=== PATIENT | female | born 1970 | race Caucasian/White ===

== ENCOUNTER 2016-09-26 11:17 | Emergency (ER) | payer MEDICAID ==
[2016-09-26] MEDS ORDERED: NS 1,000 ML IV ONE ×2 (11:44→12:47)
--- NOTE | 2016-09-26 12:51 | EDPHY ---
H & P Stated Complaint: vaginal bleeding, lightheaded, pale and weak Time Seen by Provider: 09/26/16 12:41 HPI/ROS: CHIEF COMPLAINT: VAGINAL BLEEDING, LIGHTHEADED HISTORY OF PRESENT ILLNESS: 46 year Old female who comes to the emergency department complaining of continued vaginal bleeding and lightheadedness. She states that she had heavy bleeding in March and was diagnosed with fibroids and urgent care provider recommended hysterectomy. She was seen by Dr. Salguero from OBGYN who recommended attempting to control her bleeding with hormones. Patient states that this has not worked well and that she has been bleeding for about 3 weeks out of 4 for the last several months. Over the last 48 hours it became very heavy. She feels lightheaded when she stands up and presyncopal. She denies chest pain or shortness of breath. she is 7 years ago. She spoke with Dr. Salguero 1 week ago and they agree to have the patient find any physician. She has not yet found any physician. REVIEW OF SYSTEMS: Constitutional: denies: chills, fever, recent illness, recent injury EENTM: denies: blurred vision, double vision, nose congestion Respiratory: denies: cough, shortness of breath Cardiac: denies: chest pain, irregular heart rate, lightheadedness, palpitations Gastrointestinal/Abdominal: denies: abdominal pain, diarrhea, nausea, vomiting, blood streaked stools Genitourinary: See HPI Musculoskeletal: denies: joint pain, muscle pain Skin: denies: lesions, rash, jaundice, bruising Neurological: denies: headache, numbness, paresthesia, tingling, dizziness, weakness Hematologic/Lymphatic: denies: blood clots, easy bleeding, easy bruising Immunologic/allergic: denies: HIV/AIDS, transplant EXAM: GENERAL: Slightly pale, tachycardic HEAD: Atraumatic, normocephalic. EYES: Pupils equal round and reactive to light, extraocular movements intact, sclera anicteric, conjunctiva are normal. ENT: TMs normal, nares patent, oropharynx clear without exudates. Moist mucous membranes. NECK: Normal range of motion, supple without lymphadenopathy or JVD. LUNGS: Breath sounds clear to auscultation bilaterally and equal. No wheezes rales or rhonchi. HEART: Regular rate and rhythm without murmurs, rubs or gallops. ABDOMEN: Soft, nontender, normoactive bowel sounds. No guarding, no rebound. No masses appreciated. : Mild vaginal bleeding, No visible trauma. Small amount of clot the cervix. BACK: No CVA tenderness, no spinal tenderness, step-offs or deformities EXTREMITIES: Normal range of motion, no pitting or edema. No clubbing or cyanosis. NEUROLOGICAL: Cranial nerves II through XII grossly intact. Normal speech, normal gait. 5/5 strength, normal movement in all extremities, normal sensation PSYCH: Normal mood, normal affect. SKIN: Warm, dry, normal turgor, no visible rashes or lesions. Source: Patient Exam Limitations: No limitations - Personal History LMP (Females 10-55): Now Current Tetanus/Diphtheria Vaccine: Unsure Current Tetanus Diphtheria and Acellular Pertussis (TDAP): Unsure - Medical/Surgical History Hx Asthma: No Hx Chronic Respiratory Disease: No Hx Diabetes: No Hx Cardiac Disease: No Hx Renal Disease: No Hx Cirrhosis: No Hx Alcoholism: No Hx HIV/AIDS: No Hx Splenectomy or Spleen Trauma: No Other PMH: Fibroids - Family History Significant Family History: No pertinent family hx - Social History Smoking Status: Never smoked Alcohol Use: Sober Drug Use: None Constitutional: Initial Vital Signs Temperature (C) 36.8 C 09/26/16 11:22 Heart Rate 138 H 09/26/16 11:22 Respiratory Rate 22 H 09/26/16 11:22 Blood Pressure 122/8 H 09/26/16 11:22 O2 Sat (%) 100 09/26/16 11:22 O2 Delivery Mode Room Air Allergies/Adverse Reactions: No Known Allergies Allergy (Unverified 04/10/16 13:23) Home Medications: Medication Instructions Recorded Acyclovir [Zovirax 200 mg (*)] 200 mg PO TID PRN 09/26/16 Iron/FA/B12/C/Docusate Sodium 1 each PO DAILY 09/26/16 [Ferraplus 90 Tablet] Norethindrone AC-Eth Estradiol 1 each PO DAILY 09/26/16 [] Medical Decision Making ED Course/Re-evaluation: I spoke 1st with Dr. Vickie Castaneda, then with the nurse practitioner for Dr. Salguero and then with Dr. Rajni Schultz. Dr. Schultz recommends transfusion here and then if the patient stabilizes discharged to follow up in the clinic on Wednesday. Continue the control pills and discuss options at that point. She will likely eventually require a hysterectomy but it is not ideal at this time. If she is tachycardic or orthostatic after the transfusion then to admit to the hospital service. 4:15 p.m. the patient is feeling much better. She is what 1 unit. She is able to stand up without becoming lightheaded. We will infuse the 2nd ensure follow up with Dr. Schultz as previously discussed on Wednesday. 6:20 p.m. the patient is feeling completely better. She is not orthostatic. She will follow up on Wednesday with OBGYN. She declines further work up or testing. 6:40 p.m. the patient has a small faint spot of erythema to her forehead. I suggested we give her Benadryl and observed. She refuses observation because her friend is here to pick her up and she has a tag marker. She agreed to return immediately for symptoms worsen. Differential Diagnosis: Partial list of the Differential diagnosis considered include but were not limited to; anemia, fibroids, dysfunctional uterine bleeding and although unlikely based on the history and physical exam, I also considered infection, hemorrhage, . I discussed these differential diagnoses and the plan with the patient as well as the usual and expected course. The patient understands that the diagnosis is provisional and that in medicine we are not always correct and that further workup is often warranted. Usual and customary warnings were given. All of the patient's questions were answered. The patient was instructed to return to the emergency department should the symptoms at all worsen or return, otherwise to followup with the physician as we discussed. - Data Points Laboratory Results: Laboratory Results 09/26/16 11:35 09/26/16 11:35 09/26/16 09/26/16 11:35 11:32 WBC 11.26 H 10^3/uL (3.80-9.50) RBC 3.12 L 10^6/uL (4.18-5.33) Hgb 8.1 L g/dL (12.6-16.3) POC Hgb 9.2 L gm/dL (12.3-15.9) Hct 25.7 L % (38.0-47.0) POC Hct 27 L % (35.5-47.5) MCV 82.4 fL (81.5-99.8) MCH 26.0 L pg (27.9-34.1) MCHC 31.5 L g/dL (32.4-36.7) RDW 15.3 H % (11.5-15.2) Plt Count 424 H 10^3/uL (150-400) MPV 10.0 fL (8.7-11.7) Neut % (Auto) 75.6 H % (39.3-74.2) Lymph % (Auto) 14.0 L % (15.0-45.0) [place] % (Auto) 8.7 % (4.5-13.0) Eos % (Auto) 0.4 L % (0.6-7.6) Baso % (Auto) 0.8 % (0.3-1.7) Nucleat RBC Rel Count 0.0 % (0.0-0.2) Absolute Neuts (auto) 8.50 H 10^3/uL (1.70-6.50) Absolute Lymphs (auto) 1.58 10^3/uL (1.00-3.00) Absolute Monos (auto) 0.98 H 10^3/uL (0.30-0.80) Absolute Eos (auto) 0.05 10^3/uL (0.03-0.40) Absolute Basos (auto) 0.09 10^3/uL (0.02-0.10) Absolute Nucleated RBC 0.00 10^3/uL (0-0.01) Immature Gran % 0.5 % (0.0-1.1) Immature Gran # 0.06 10^3/uL (0.00-0.10) PT 13.6 SEC (12.0-15.0) INR 1.05 (0.83-1.16) APTT 21.7 L SEC (23.0-38.0) POC Sodium 136 mEq/L (134-144) Sodium 134 mEq/L (134-144) POC Potassium 3.3 mEq/L (3.3-5.0) Potassium 3.8 mEq/L (3.5-5.2) POC Chloride 100 mEq/L (96-108) Chloride 101 mEq/L (97-110) Carbon Dioxide 22 mEq/l (22-31) Anion Gap 11 mEq/L (8-16) POC BUN 10 mg/dL (7-23) BUN 11 mg/dL (7-23) Creatinine 0.7 mg/dL (0.6-1.0) POC Creatinine 0.7 mg/dL (0.6-1.2) Estimated GFR > 60 Glucose 139 H mg/dL (70-100) POC Glucose 140 H mg/dL (70-100) Calcium 9.1 mg/dL (8.5-10.4) Beta HCG, Qual NEGATIVE Patient ABO/Rh O POSITIVE Antibody Screen NEGATIVE Crossmatch IS Only See Detail Medications Given: Discontinued Medications Sodium Chloride (Ns) 1,000 mls @ 0 mls/hr IV ONCE ONE PRN Reason: Wide Open Stop: 09/26/16 11:45 Last Admin: 09/26/16 11:50 Dose: 1,000 mls Sodium Chloride (Ns) 1,000 mls @ 0 mls/hr IV EDNOW ONE PRN Reason: Wide Open Stop: 09/26/16 12:48 Last Admin: 09/26/16 12:50 Dose: 1,000 mls Point of Care Test Results: 09/26/16 11:32 POC Sodium 136 POC Potassium 3.3 POC Chloride 100 POC BUN 10 POC Creatinine 0.7 POC Glucose 140 H Departure - Departure Disposition: Home, Routine, Self-Care Clinical Impression: Encounter for blood transfusion Fibroids Qualifiers: Uterine leiomyoma location: submucous Qualifier Code: (D25.0) Submucous leiomyoma of uterus Condition: Fair Instructions: Uterine Fibroids (ED), Anemia (ED) Additional Instructions: We spoke with Dr. Schultz who will follow up with you on Wednesday. She is in the same office as Dr. Salguero. A few prefer another office altogether you may try and get an appointment with Dr. Rosales. Referrals: NONE *PRIMARY CARE P,. [Primary Care Provider] - As per Instructions Rajni Schultz DO [Doctor of Osteopathy] - As per Instructions Loretta Martinez MD [Medical Doctor] - As per Instructions Stand Alone Forms: Work Excuse
[2016-09-26 12:57] LABS: % IMMATURE GRANULYOCYTES 0.5 % (0.0-1.1); ABSOLUTE IMMATURE GRANULOCYTES 0.06 10^3/uL (0.00-0.10); ADD DIFF? NO; ADD MORPH? NO; ADD SCAN? NO; ATYPICAL LYMPHOCYTE FLAG 0 (0-99); FRAGMENT RBC FLAG 10 (0-99); HEMATOCRIT 25.7 % (38.0-47.0); HEMOGLOBIN 8.1 g/dL (12.6-16.3); LEFT SHIFT FLG 0 (0-99); LIPEMIA HEMOLYSIS FLAG 80 (0-99); MEAN CELL HEMOGLOBIN CONCENTR. 31.5 g/dL (32.4-36.7); MEAN CELL VOLUME 82.4 fL (81.5-99.8); PLATELET CLUMPS FLAG 0 (0-99); PLATELET COUNT 424 10^3/uL (150-400); RED BLOOD CELL COUNT 3.12 10^6/uL (4.18-5.33); RED CELL DISTRIBUTION WIDTH 15.3 % (11.5-15.2)
[2016-09-26 13:09] LABS: ANION GAP 11 mEq/L (8-16); CALCIUM 9.1 mg/dL (8.5-10.4); CARBON DIOXIDE 22 mEq/l (22-31); CHLORIDE 101 mEq/L (97-110); CREATININE 0.7 mg/dL (0.6-1.0); GLOMERULAR FILTRATION RATE > 60; GLUCOSE 139 mg/dL (70-100); POTASSIUM 3.8 mEq/L (3.5-5.2); SODIUM 134 mEq/L (134-144)
[2016-09-26 13:31] LABS: INR 1.05 (0.83-1.16); PROTIME(PATIENT) 13.6 SEC (12.0-15.0)
[2016-09-26 13:32] LABS: APTT 21.7 SEC (23.0-38.0)
[2016-09-26 14:37] VITALS: RESP 16
--- NOTE | 2016-09-26 16:28 | US ---
Pelvic Ultrasound Indication: 46-year-old woman with heavy bleeding for past six months. Technique: Transabdominal and transvaginal imaging. Comparison: Pelvic sonogram dated April 10, 2016. Findings: Transabdominal Imaging: The anteverted uterus is normal size measuring 10.5 cm in length x 6.8 x 5.5 cm. Three intramural and exophytic uterine leiomyomas are better characterized on transvaginal imagi ng. No adnexal mass or free fluid. Transvaginal Imaging: The largest intramural uterine leiomyoma in the lower uterine segment, bulging into and deforming the endometrial cavity, has minimally increased in volume since six months prior. The leiomyoma, labeled #1, measures 3.5 x 3.5 x 3.1 cm with a total volume of 19.7 mL (previously me asured 3.1 x 2.6 x 2.4 cm). A second leiomyoma toward the fundus in the posterior body, bulging and d eforming the endometrial lining anteriorly (labeled #2) measures 2.1 x 2.3 x 5.0 cm with a total volu me of 5.1 mL (previously 1.6 x 1.6 x 1.1 cm). A third exophytic leiomyoma emanating off the posterior left body has no effect upon the endometrial lining and measures 2.5 x 2.0 x 1.7 cm with a total vol ume of 4.3 mL (previously 2.2 x 1.8 x 1.8 cm). The deformed endometrial lining is obscured in the low er uterine segment and body. The endometrial lining at the fundus is normal thickness (7 mm). The ovaries are normal size with small peripheral follicles and normal blood flow on color Doppler im aging. No ovarian cysts or adnexal mass. The right ovary measures 2.3 x 2.0 x 1.1 cm. The left ovary measures 3.0 x 2.1 x 1.3 cm. Trace free fluid resides adjacent the right ovary. Impression: 1. Two intramural leiomyomas in the lower uterine segment and body have minimally increased in volume since March 2016 and have an intracavitary component deforming the endometrial lining. Leiomyomas a re likely the source for the abnormal uterine bleeding. 2. Endometrial lining within normal limits (7 mm). 3. Normal ovaries. Comment: Results were called to Dr. Cortez at 3 p.m. September 26, 2016.
[2016-09-26 18:30] VITALS: BP 149/87; PULSE 89; TEMP 97.5; O2SAT 97
== END 2016-09-26 18:54 | disposition home or self-care (01) ==
DX: D25.0 Submucous leiomyoma of uterus (principal); Z51.89 Encounter for other specified aftercare
CPT/HCPCS: 76856; 96360; 96361; 99285; P9016; 82947-QW; J1200

== ENCOUNTER 2016-10-20 07:56 | Inpatient (IN) | payer MEDICAID ==
[~2016-10-20 07:56] MED LIST: ceFAZolin 2 GM/DEXTROSE 100 ML IV ONE
[2016-10-20] MEDS ORDERED: LIDOCAINE 2% 5 ML SDV ONE (09:28)
[2016-10-20] MEDS ORDERED: ROCURONIUM 50 MG/5 ML VIAL ONE (09:28)
[2016-10-20] MEDS ORDERED: fentaNYL 100 MCG/2 ML INJ ONE ×4 (09:31→13:53)
[2016-10-20] MEDS ORDERED: PROPOFOL 200 MG/20 ML VIAL ONE (09:31)
[2016-10-20] MEDS ORDERED: LIDOCAINE 1% 30 ML SDV ONE (09:34)
[2016-10-20] MEDS ORDERED: BUPIVACAINE 0.25% 30 ML SDV ONE (09:35)
[2016-10-20] MEDS ORDERED: VASOPRESSIN 20 UNIT/ML VIAL ONE (09:35)
[2016-10-20] MEDS ORDERED: METHYLENE BLUE 0.5% 50 MG/10 ML AMP ONE (09:37)
[2016-10-20] MEDS ORDERED: SCOPOLAMINE HYDROBROMIDE 1.5 MG PATCH TD ONE (09:47)
[2016-10-20] MEDS ORDERED: MIDAZOLAM 2 MG/2 ML VIAL ONE (09:47)
[2016-10-20] MEDS ORDERED: DEXAMETHASONE 4 MG/ML VIAL ONE (10:18)
[2016-10-20] MEDS ORDERED: PHENYLEPHRINE HCL 100 MCG/ML SYR ONE (10:21)
[2016-10-20] MEDS ORDERED: ONDANSETRON 4 MG/2 ML VIAL ONE (12:18)
[2016-10-20] MEDS ORDERED: ceFAZolin 1 GM VIAL ONE (12:52)
[2016-10-20] MEDS ORDERED: SUGAMMADEX SODIUM 200 MG/2 ML VIAL IVP ONE (12:58)
[2016-10-20] MEDS ORDERED: SURGIFLO MATRIX KIT WITH THROMBIN TP ONE (13:05)
[2016-10-20] MEDS ORDERED: SKIN ADHESIVE (DERMABOND) 1 EACH TP ONE (13:18)
[2016-10-20] MEDS ORDERED: KETOROLAC 30 MG/1 ML SDV ONE (13:20)
[2016-10-20] MEDS ORDERED: LR 1,000 ML IV SCH (14:00)
[2016-10-20] MEDS ORDERED: HYDROCODONE/APAP 5/325 TAB PO PRN (14:00)
[2016-10-20] MEDS ORDERED: GLYCERIN ADULT 1 EACH SUPP PR ONE (14:30)
[2016-10-20 14:50] LABS: HEMATOCRIT 35.8 % (38.0-47.0); HEMOGLOBIN 11.1 g/dL (12.6-16.3); MEAN CELL VOLUME 90.2 fL (81.5-99.8); RED BLOOD CELL COUNT 3.97 10^6/uL (4.18-5.33); RED CELL DISTRIBUTION WIDTH 15.1 % (11.5-15.2)
[2016-10-20] MEDS ORDERED: HYDROmorphONE/DILAUDID 1 MG/ML SYR IVP PRN (16:22)
--- NOTE | 2016-10-20 16:59 | GOP ---
[f rep st] OPERATIVE REPORT DATE OF OPERATION: 10/20/2016 SURGEON: Belinda Carroll MD CAMPAIGN ASSOCIATE: Tina Ellison M.D. ANESTHESIA: General with ET tube. ANESTHESIOLOGIST: Travis Chacon M.D. PREOPERATIVE DIAGNOSIS: 1. Submucosal fibroids. 2. Abnormal uterine bleeding. 3. Anemia. POSTOPERATIVE DIAGNOSIS: 1. Submucosal fibroids. 2. Abnormal uterine bleeding. 3. Anemia. PROCEDURE PERFORMED: 1. Laparoscopic assisted vaginal hysterectomy. 2. Bilateral salpingectomy. 3. Cystoscopy. FINDINGS: Enlarged mobile uterus. Good descensus noted on exam. ESTIMATED BLOOD LOSS: 500 mL. INDICATIONS: The patient is a 46-year-old G1, P1 with a fibroid uterus and abnormal uterine bleeding over the course of 9 months, that has not responded to medical management and required a transfusion of 2 units pRBCs. She desires a hysterectomy for definitive surgery. DESCRIPTION OF PROCEDURE: The patient was taken to the operating room. Her identity and the procedure were confirmed. She was placed under general anesthesia with an ET tube. She was prepped and draped in a normal sterile condition in dorsal lithotomy with Daquan stirrups. A martin catheter was placed. A final time out was performed. The PATEL II uterine manipulator was placed with a 6 mm tip and 3.5 cm cup. Attention was turned to the abdomen. 0.25% marcaine was injected at the base of the umbilicus and a 10 mm incision was made. The skin was lifted and the veress needle was placed. The opening pressure was 2 mm/ Hg. The abdomen was insufflated to 15 mm Hg. 2 lateral 5 mm ports were placed under direct visualization after injection of marcaine. Bilateral fallopian tubes were removed using the Ligasure. Attention was turned to the right uteroovarian ligament which was sealed and cut using the Ligasure. The round ligament was similarly transected. An opening was made between the anterior and posterior leaves of the broad liagment.the bladder flap was developed on the right. The uterine artery was skeletonized and sealed. Attention was turned to the left side where the same procedure was performed. The bladder flap was further developed using an endo kitner until it is was 2 cm below the cuff of the PATEL. The left uterine artery was sealed and cut. The right uterine artery was then cut. Attention was then turned to the cuff which was incised anteriorly using the laparoscopic Bovie. Despite uterine manipulation and changing to a 30 degree laparoscope we were unable to get the necessary visualization to incise the cuff posteriorly, so the decision was made to finish the colpotomy from below. The short weight speculum was placed and the cervix was grasped with Joaquín's tenacula. We entered sharply posteriorly into the peritoneum and then placed the long weight speculum. The remainder of the attachment of the uterus to the bilateral uterosacrals was taken down using the curvey bob clamp and sharp transection, requiring 2 bites on both sides. Hemostasis was noted at this time. There was a small (~ 1.5 cm) vaginal laceration noted at the cuff in the midline posteriorly and this was repaired with a running locked stitch of 0 vicryl. The cuff was then closed in a running locked fashion with 0 vicryl. Hemostasis was noted. A cystoscopy was performed and the bladder was noted to be normal in appearance with strong urinary jets bilaterally. We then changed gowns and gloves and returned laparoscopically. Extensive irrigation was performed. There was some mild oozing at the cuff which resolved with cautery and surgiflow application. The remainder of the surgical site was hemostatic. All instruments and gas was removed from the abdomen. The incisions were closed with 4-0 monocryl. A pressure dressing with tegadarm was placed on the umbilical incision, and dermabond was used on the 2 lateral incision. The patient was awakened and brought to the recovery room in good condition. FLUIDS REPLACED: 1900 mL. URINE OUTPUT: 50 mL. COMPLICATIONS: None /[id number]/MODL MTDD
[2016-10-20] MEDS: OXYCODONE/APAP 5/325 TAB PO PRN ×2 (17:28→17:34)
[2016-10-20] MEDS: ONDANSETRON 4 MG/2 ML VIAL IVP PRN ×2 (18:04→22:03)
[2016-10-20] MEDS ORDERED: NALOXONE HCL 0.4 MG/ML INJ IVP PRN (18:31)
[2016-10-20] MEDS ORDERED: morphINE PCA 30 MG/30 ML PCA IV PRN (18:31)
--- NOTE | 2016-10-20 19:14 | SOAPPROG ---
SOAP Progress Note Assessment/Plan: Assessment: POD#1 s/p LAVH, b/l salpingectomy, cysto Pt with ongoing pain that is more than would be expected. VSS, no tachycardia, afebrile, normal BP. No surgical abdomen. No evidence of intraabdominal bleeding. UOP on lower side (50 ml in PACU, 100 ml at time of martin removal about 1600), but overall adequate Plan: Pt really feels that morphine helped most, will do a trial of morphine EVENT HOST overnight as she remains very uncomfortable. Will encourage her to minimize narcotics as much as possible. Ativan 1 mg x1 prn as she is feeling very anxious, will see if necessary after EVENT HOST is initiated Continue bowel care Monitor ins and outs closely Get repeat CBC now. Expect will be lower than in PACU which was drawn very shortly after surgery, but will eval for any evidence of ongoing blood loss. If pain persists despite above measures consider imaging such as CT or US 10/20/16 19:16 Subjective: Pt with ongoing pain since surgery. Initially was complaining of severe constipation immediately after surgery, got a suppository in the PACU and then an enema once she arrived on the floor. Also wanted martin out so this was removed. After the enema she felt better in terms of needing to have a bowel movement (small amount of hard stool was removed). However now she is still complaining of abdominal pain, not helped by 0.4 mg dilaudid or 2 percocet. She states the only thing that helped was the morphine in the PACU. Denies nausea/ vomiting. Minimal vaginal bleeding but she is worried about ripping stitches since she was straining on the commode. Painful when she takes a deep breath. Is feeling anxious. Objective: Vital Signs Temp Pulse Resp BP Pulse Ox 36.8 C 70 16 144/85 H 100 10/20/16 17:55 10/20/16 17:55 10/20/16 17:55 10/20/16 17:55 10/20/16 17:55 Laboratory Results 10/20/16 14:30 10/19/16 10/20/16 10/21/16 05:59 05:59 05:59 Intake Total 2700 Output Total 650 Balance 2049 Gen: alert, awake, sitting straight up, no acute distress, AOx4, talking in complete sentences CV: abd mildly distended, soft, slightly more tender than would be expected but no rebound/guarding. Ext: no edema Entrepreneur: minimal blood on pad. Cuff palpated, intact ICD10 Worksheet Patient Problems: Problems Problem Status Onset H/O: hysterectomy Acute - ICD10 Problem Qualifiers (1) H/O: hysterectomy
[2016-10-20] MEDS ORDERED: LORazepam 1 MG TAB PO PRN (19:23)
[2016-10-20] MEDS: KETOROLAC 30 MG/1 ML SDV IVP PRN (19:26)
[2016-10-20 19:47] LABS: HEMATOCRIT 28.8 % (38.0-47.0); HEMOGLOBIN 9.1 g/dL (12.6-16.3); MEAN CELL HEMOGLOBIN 27.9 pg (27.9-34.1); MEAN CELL HEMOGLOBIN CONCENTR. 31.6 g/dL (32.4-36.7); MEAN CELL VOLUME 88.3 fL (81.5-99.8); RED BLOOD CELL COUNT 3.26 10^6/uL (4.18-5.33)
[2016-10-20] MEDS: SIMETHICONE 80 MG TAB CHEW PO SCH (23:44)
[2016-10-20] MEDS: DOCUSATE SODIUM 100 MG CAP PO SCH (23:44)
[2016-10-21] MEDS: KETOROLAC 30 MG/1 ML SDV IVP PRN ×2 (03:01→09:12)
[2016-10-21 08:20] LABS: HEMATOCRIT 23.2 % (38.0-47.0); HEMOGLOBIN 7.4 g/dL (12.6-16.3); MEAN CELL HEMOGLOBIN 28.7 pg (27.9-34.1); MEAN CELL HEMOGLOBIN CONCENTR. 31.9 g/dL (32.4-36.7); MEAN CELL VOLUME 89.9 fL (81.5-99.8); RED BLOOD CELL COUNT 2.58 10^6/uL (4.18-5.33); RED CELL DISTRIBUTION WIDTH 15.7 % (11.5-15.2)
[2016-10-21] MEDS: SIMETHICONE 80 MG TAB CHEW PO SCH ×4 (08:25→21:57)
[2016-10-21] MEDS: DOCUSATE SODIUM 100 MG CAP PO SCH ×2 (08:25→21:08)
--- NOTE | 2016-10-21 08:56 | SOAPPROG ---
SOAP Progress Note Assessment/Plan: Assessment: 46 yo female s/p TLH for menorrhagia, overall doing well. Plan: 10/21/16 08:54 Transition to oral meds. Recheck cbc at noon, decreased 12% from surgery but likely appropriate given 400 -500 ebl. IF ready and cbc stable, d/c home tonight. 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 Objective: Vital Signs Temp Pulse Resp BP Pulse Ox 36.8 C 80 16 100/59 L 96 10/21/16 07:52 10/21/16 07:52 10/21/16 07:52 10/21/16 07:52 10/21/16 07:52 Laboratory Results 10/21/16 08:00 10/20/16 10/21/16 10/22/16 05:59 05:59 05:59 Intake Total 4500 Output Total 1350 Balance 3150 Physical Exam - Physical Exam General Appearance: no apparent distress Respiratory: lungs clear Cardiac/Chest: regular rate, rhythm Abdomen: non-tender Skin: warm/dry Extremities: non-tender Neuro/Psych: oriented x 3 ICD10 Worksheet Patient Problems: Problems Problem Status Onset H/O: hysterectomy Acute
[2016-10-21] MEDS: HYDROmorphONE/DILAUDID 2 MG TAB PO PRN ×4 (09:13→22:02)
[2016-10-21] MEDS: ONDANSETRON 4 MG/2 ML VIAL IVP PRN (09:23)
[2016-10-21 13:07] LABS: % IMMATURE GRANULYOCYTES 0.3 % (0.0-1.1); ABSOLUTE IMMATURE GRANULOCYTES 0.03 10^3/uL (0.00-0.10); ADD DIFF? NO; ADD MORPH? NO; ADD SCAN? NO; ATYPICAL LYMPHOCYTE FLAG 20 (0-99); FRAGMENT RBC FLAG 0 (0-99); HEMATOCRIT 23.6 % (38.0-47.0); HEMOGLOBIN 7.4 g/dL (12.6-16.3); LEFT SHIFT FLG 0 (0-99); LIPEMIA HEMOLYSIS FLAG 80 (0-99); MEAN CELL HEMOGLOBIN 27.7 pg (27.9-34.1); MEAN CELL HEMOGLOBIN CONCENTR. 31.4 g/dL (32.4-36.7); MEAN CELL VOLUME 88.4 fL (81.5-99.8); PLATELET CLUMPS FLAG 0 (0-99); PLATELET COUNT 303 10^3/uL (150-400); RED BLOOD CELL COUNT 2.67 10^6/uL (4.18-5.33); RED CELL DISTRIBUTION WIDTH 15.5 % (11.5-15.2)
[2016-10-21 13:51] LABS: ANION GAP 6 mEq/L (8-16); CALCIUM 8.1 mg/dL (8.5-10.4); CARBON DIOXIDE 25 mEq/l (22-31); CHLORIDE 102 mEq/L (97-110); CREATININE 0.7 mg/dL (0.6-1.0); GLOMERULAR FILTRATION RATE > 60; GLUCOSE 92 mg/dL (70-100); POTASSIUM 3.7 mEq/L (3.5-5.2); SODIUM 133 mEq/L (134-144)
[2016-10-21] MEDS: IBUPROFEN 600 MG TAB PO PRN ×2 (14:50→22:01)
--- NOTE | 2016-10-21 18:18 | GDS ---
DISCHARGE DIAGNOSES: Menorrhagia, status post total laparoscopic hysterectomy and bilateral salping ectomy. HPI: The patient is a 46-year-old female who was having longstanding history of menorrhagia that wa s not improved with medical management and desired surgical management. The patient underwent a tot al laparoscopic hysterectomy without complications on 10/20. She lost approximately 400-500 mL of b lood and her discharge hematocrit was stable at 23%, down from 35% preoperatively. Postoperatively, she is doing well. She was ambulating. She was voiding. She was tolerating p.o. intake. PHYSICAL EXAMINATION: VITAL SIGNS: Blood pressure is 103/65, heart rate is 88, respiratory rate 16 , temperature is 36.9. GENERAL: She is in no apparent distress. ABDOMEN: Soft, nontender. Her i ncisions are clean, dry, and intact. HEART: Regular rate and rhythm. LUNGS: Clear to auscultatio n. EXTREMITIES: She has no calf tenderness that is noted. LABORATORY DATA: Discharge hematocrit is 23%. DISCHARGE INSTRUCTIONS: Nothing in the vagina for 6 weeks. Call for fever, chills, or heavy vagina l bleeding. No heavy lifting for 6 weeks. FOLLOWUP: In 2 weeks for her postoperative visit with Dr. Carroll. DISCHARGE MEDICATIONS: Include Dilaudid 4 mg p.o. q.4 hours p.r.n. pain, #40, refills 0. Ibuprofen 600 mg p.o. q.6 hours p.r.n. pain, refill 0, #60. She does have [place] at home. /[id number]/MODL
[2016-10-21] MEDS ORDERED: LORazepam 1 MG TAB PO ONE (20:30)
[2016-10-22 02:11] VITALS: RESP 16
[2016-10-22] MEDS: HYDROmorphONE/DILAUDID 2 MG TAB PO PRN ×2 (02:29→07:43)
[2016-10-22] MEDS: IBUPROFEN 600 MG TAB PO PRN (04:23)
[2016-10-22 07:18] VITALS: BP 99/50; PULSE 87; TEMP 98.2
[2016-10-22] MEDS: DOCUSATE SODIUM 100 MG CAP PO SCH (07:42)
[2016-10-22 08:01] VITALS: O2SAT 93
--- NOTE | 2016-10-22 12:29 | PDDCSUM ---
Discharge Summary Discharge Summary: Gynecology Discharge Summary: Date of admission: 10/20/16 Date of discharge: 10/22/16 Admission diagnosis: Submucosal fibroids, anemia, abnormal uterine bleeding Discharge diagnosis: Same Procedures: Laparoscopic assisted vaginal hysterectomy, bilateral salpingectomy , cystoscopy Consults: Anesthesia Complications: None Condition at discharge: Good Hospital Course: Pt was admitted for scheduled surgery for fibroid uterus with abnormal uterine bleeding and anemia not responsive to medical management. The above procedure was completed without complication, EBL 500 ml. Her post- operative Hct was stable at 23 and she had no symptoms of anemia. By POD#2 she was meeting all postoperative milestones including ambulating, tolerating po, passing flatus, pain controlled with oral medications, voiding. Discharge instructions: Pelvic rest x 6 weeks. No heavy lifting. Call for heavy bleeding, nausea/vomiting, fevers/chills, worsening pain. Continue iron therapy. Follow-up with Dr Carroll in 2 weeks. Laboratory Results 10/21/16 12:59 10/21/16 12:59 Medications to Continue on Transfer Acyclovir [Zovirax 200 mg (*)] 200 mg PO TID PRN 09/26/16 [Last Taken 10/18/16] Ferralet 1 tab PO DAILY 10/07/16 [Last Taken 10/19/16] HYDROmorphone HCL [Dilaudid 2 mg (*)] 4 mg PO Q4 PRN #40 tab 10/21/16 [Last Taken Unknown] Ibuprofen [Motrin (*)] 600 mg PO Q6HRS PRN #60 tab 10/21/16 [Last Taken Unknown] Ondansetron HCl [Zofran] 4 mg PO Q6-8PRN PRN #20 tablet 10/22/16 [Last Taken Unknown] Discharge Medications Discharge Inpatient Discharge Date/Time: 10/22/16 10:35 Inpatient Discharge Disposition: Home, Routine, Self-Care Inpatient Discharge Comment: Observation Discharge Date/Time: Observation Discharge Disposition: Home, Routine, Self-Care Observation Discharge Comment: Instructions: [facility] Patient Education, Infection Prevention Hydrocodone/Acetaminophen (By mouth) Ibuprofen (By mouth) Hydromorphone (By mouth) Deep Venous Thrombosis (DC) Laparoscopic Hysterectomy (DC) Prescriptions: Ibuprofen [Motrin (*)] Tina Rodrigues HYDROmorphone HCL [Dilaudid 2 mg (*)] Tina Rodrigues Ondansetron HCl [Zofran] Belinda Carroll
== END 2016-10-22 10:35 | disposition home or self-care (01) | DRG 743 ==
LOC: INTOOBSV 07:56 → F3E 07:56 → FOB 15:51 → OBSVTOIN 10-21 19:20
PROVIDERS: ADMIT Obstetrics & Gynecology; ATTEND Obstetrics & Gynecology
DX: D25.0 Submucous leiomyoma of uterus (principal)
CPT/HCPCS: G0378; J0690; J1100; J1170; J1885; J2250; J2270; J2370; J2405; J2704; J3010; Q9968

== ENCOUNTER 2016-12-02 10:02 | Emergency (ER) | payer MEDICAID ==
--- NOTE | 2016-12-02 10:26 | CPEKG ---
Heart Rate: 96 RR Interval: 625 P-R Interval: 140 QRSD Interval: 90 QT Interval: 376 QTC Interval: 476 P [place]: 60 QRS [place]: -55 T Wave [place]: 74 EKG Severity - BORDERLINE ECG - EKG Impression: SINUS RHYTHM EKG Impression: PROBABLE LEFT ATRIAL ABNORMALITY EKG Impression: CONSIDER LAFB OR INFERIOR INFARCT Electronically Signed By: Shree Cortez 02-Dec-2016 11:25:14
[2016-12-02 10:42] LABS: % IMMATURE GRANULYOCYTES 0.2 % (0.0-1.1); ABSOLUTE IMMATURE GRANULOCYTES 0.01 10^3/uL (0.00-0.10); ADD DIFF? NO; ADD MORPH? NO; ADD SCAN? NO; ATYPICAL LYMPHOCYTE FLAG 30 (0-99); FRAGMENT RBC FLAG 0 (0-99); HEMATOCRIT 39.2 % (38.0-47.0); HEMOGLOBIN 12.4 g/dL (12.6-16.3); LEFT SHIFT FLG 0 (0-99); LIPEMIA HEMOLYSIS FLAG 80 (0-99); MEAN CELL HEMOGLOBIN 25.6 pg (27.9-34.1); MEAN CELL HEMOGLOBIN CONCENTR. 31.6 g/dL (32.4-36.7); MEAN CELL VOLUME 80.8 fL (81.5-99.8); MEAN PLATELET VOLUME 9.5 fL (8.7-11.7); PLATELET CLUMPS FLAG 10 (0-99); PLATELET COUNT 391 10^3/uL (150-400); RED BLOOD CELL COUNT 4.85 10^6/uL (4.18-5.33); RED CELL DISTRIBUTION WIDTH 16.6 % (11.5-15.2)
--- NOTE | 2016-12-02 10:42 | EDPHY ---
H & P Smoking Status: Never smoked Time Seen by Provider: 12/02/16 10:30 HPI/ROS: CHIEF COMPLAINT: Short of breath, dizzy HISTORY OF PRESENT ILLNESS: 46-year-old female presents to the emergency department feeling dizzy and short of breath. The patient has had uterine fibroids and has had vaginal bleeding. She had a partial hysterectomy me 5-6 weeks ago. Prior to that she required transfusions because of acute blood loss. The patient had similar feeling today and feeling very dizzy lightheaded and felt like she was going to pass out. She does not have any abdominal pain. She does feel short of breath although no pain in her chest. She denies a headache. Denies neck or back pain. Denies calf pain or swelling. REVIEW OF SYSTEMS: Constitutional: No fever, no chills. Eyes: No double or blurry vision. ENT: No sore throat. Respiratory: Short of breath as above Cardiac: No chest pain. Gastrointestinal: No abdominal pain, vomiting or diarrhea. Genitourinary: No dysuria. Musculoskeletal: No neck or back pain. Skin: No rashes. Neurological: No headache. (Senait Singleton) Past Medical/Surgical History: Uterine fibroid requiring partial hysterectomy 5-6 weeks ago, anemia requiring transfusions (Senait Singleton) Social History: Single and lives in [place] (Senait Singleton) Physical Exam: General Appearance: Alert, anxious. Heart rate 115, 99% on room air, blood pressure 111/81, respiratory rate 22 Eyes: Pupils equal and round. Extraocular motions are all intact. ENT: Mouth: Mucous membranes moist. Respiratory: No wheezing, rhonchi, or rales, lungs are clear to auscultation. Cardiovascular: Regular rate and rhythm. Gastrointestinal: Abdomen is soft and nontender, no masses, no rebound or guarding, bowel sounds normal. Neurological: Alert and oriented x 3, cranial nerves II through XII grossly intact Skin: Warm and dry, no rashes. Rectal exam: No external hemorrhoids. Normal sphincter tone. There was no blood or stool on gloved finger. Musculoskeletal: Nontender to palpate along the cervical, thoracic or lumbar spine. Neck is supple. Extremities: Full range of motion and no peripheral edema. Psychiatric: Patient is oriented X 3, there is no agitation. (Senait Singleton) Constitutional: Initial Vital Signs Temperature (C) 36.6 C 12/02/16 10:09 Heart Rate 115 H 12/02/16 10:09 Respiratory Rate 22 H 12/02/16 10:09 Blood Pressure 111/81 H 12/02/16 10:09 O2 Sat (%) 99 12/02/16 10:09 O2 Delivery Mode Room Air Allergies/Adverse Reactions: No Known Allergies Allergy (Verified 12/02/16 10:08) Home Medications: Medication Instructions Recorded NK [No Known Home Meds] 12/02/16 Medical Decision Making - Diagnostics Imaging: Imaging Impressions Chest/Thorax CTA 12/02/16 11:35 Impression: 1. There is no CT evidence of pulmonary artery thromboemboli. 2. Minimal subsegmental atelectasis at the posterior medial right lung base. 3. Dextrorotatory thoracic scoliosis. Findings were discussed with SENAIT SINGLETON PA-C at 13:34 pm, on 12/02/2016. Abdomen X-Ray 12/02/16 12:33 Impression: 1. Suspect pancreatic calcification which may represent chronic pancreatitis. 2. Mild constipation. 3. No bowel obstruction or pneumoperitoneum. 4. Consider CT abdomen imaging. ED Course/Re-evaluation: 46-year-old female presents to the emergency department with dyspnea and feeling dizzy and lightheaded. She felt like she was going to pass out. Patient has a history of anemia and recently had partial hysterectomy for uterine fibroids. Patient was concerned that she was becoming anemic again. She has not had any rectal bleeding. She denies chest pain or difficulty breathing. Rectal exam was performed which revealed no stool and no blood on gloved finger. EKG was within normal limits. Laboratory studies were all within normal limits. Her D-dimer was normal however her primary chief complaint was that she was having difficulty breathing. Given her recent surgery, 5 weeks ago, I discussed the pros and cons of CT pulmonary angiogram of the chest to rule out pulmonary embolism. The patient agrees with CT pulmonary angiogram. CT pulmonary angiogram was negative for pulmonary embolism. The patient was reassured. She was given some juice and she was ambulated throughout the department without difficulty. She feels comfortable being discharged home. I did speak with her OBGYN, Dr. Carter, who also came to evaluate the patient as well. Dr. Carter recommended that abdominal x-ray be obtained because she has had complaints of pain full bowel movements since her surgery. The patient has no abdominal pain or tenderness on examination. Abdominal x-ray has been ordered. The patient will see Dr. Carter in follow-up as scheduled. (Senait Singleton) Differential Diagnosis: Shortness of breath including but not limited to pulmonary infectious process, COPD, asthma, pulmonary embolus and congestive heart failure. (Senait Singleton) - Data Points Laboratory Results: Laboratory Results 12/02/16 10:26 12/02/16 10:26 12/02/16 12/02/16 12/02/16 10:26 10: 10: WBC 6.33 10^3/uL 10^3/uL (3.80-9.50) RBC 4.85 10^6/uL 10^6/uL (4.18-5.33) Hgb 12.4 g/dL L g/dL (12.6-16.3) Hct 39.2 % % (38.0-47.0) MCV 80.8 fL L fL (81.5-99.8) MCH 25.6 pg L pg (27.9-34.1) MCHC 31.6 g/dL L g/dL (32.4-36.7) RDW 16.6 % H % (11.5-15.2) Plt Count 391 10^3/uL 10^3/uL (150-400) MPV 9.5 fL fL (8.7-11.7) Neut % (Auto) 68.0 % % (39.3-74.2) Lymph % (Auto) 18.2 % % (15.0-45.0) [place] % (Auto) 11.8 % % (4.5-13.0) Eos % (Auto) 0.5 % L % (0.6-7.6) Baso % (Auto) 1.3 % % (0.3-1.7) Nucleat RBC Rel Count 0.0 % % (0.0-0.2) Absolute Neuts (auto) 4.31 10^3/uL 10^3/uL (1.70-6.50) Absolute Lymphs (auto) 1.15 10^3/uL 10^3/uL (1.00-3.00) Absolute Monos (auto) 0.75 10^3/uL 10^3/uL (0.30-0.80) Absolute Eos (auto) 0.03 10^3/uL 10^3/uL (0.03-0.40) Absolute Basos (auto) 0.08 10^3/uL 10^3/uL (0.02-0.10) Absolute Nucleated RBC 0.00 10^3/uL 10^3/uL (0-0.01) Immature Gran % 0.2 % % (0.0-1.1) Immature Gran # 0.01 10^3/uL 10^3/uL (0.00-0.10) D-Dimer < 0.27 ug/mLFEU ug/mLFEU (0.00-0.50) Sodium 142 mEq/L mEq/L (134-144) Potassium 4.3 mEq/L mEq/L (3.5-5.2) Chloride 100 mEq/L mEq/L (97-110) Carbon Dioxide 25 mEq/l mEq/l (22-31) Anion Gap 17 mEq/L H mEq/L (8-16) BUN 17 mg/dL mg/dL (7-23) Creatinine 0.7 mg/dL mg/dL (0.6-1.0) Estimated GFR > 60 Glucose 119 mg/dL H mg/dL (70-100) Calcium 10.2 mg/dL mg/dL (8.5-10.4) Troponin I < 0.012 ng/mL ng/mL (0-0.034) Departure - Departure Disposition: Home, Routine, Self-Care Clinical Impression: Near syncope Dyspnea Qualifiers: Dyspnea type: unspecified Qualified Code(s): R06.00 - Dyspnea, unspecified Condition: Good Instructions: Dyspnea (ED) Additional Instructions: Diet and activity as tolerated. Return if you feel short of breath or if you feel worse in any way. Referrals: Chuyita Whitlock PA [Primary Care Provider] - As per Instructions
[2016-12-02 10:56] LABS: ANION GAP 17 mEq/L (8-16); CALCIUM 10.2 mg/dL (8.5-10.4); CARBON DIOXIDE 25 mEq/l (22-31); CHLORIDE 100 mEq/L (97-110); CREATININE 0.7 mg/dL (0.6-1.0); GLOMERULAR FILTRATION RATE > 60; GLUCOSE 119 mg/dL (70-100); POTASSIUM 4.3 mEq/L (3.5-5.2); SODIUM 142 mEq/L (134-144)
[2016-12-02 11:08] LABS: TROPONIN I < 0.012 ng/mL (0-0.034)
[2016-12-02] MEDS ORDERED: IOPAMIDOL (ISOVUE 370) 100 ML BTL IV ONE (11:50)
[2016-12-02 13:28] VITALS: O2SAT 99
[2016-12-02 13:53] VITALS: BP 134/84; PULSE 96; RESP 20; TEMP 97.7
== END 2016-12-02 13:59 | disposition home or self-care (01) ==
DX: R06.00 Dyspnea, unspecified (principal); R55 Syncope and collapse
CPT/HCPCS: Q9967